=== PATIENT | male | born 1935 | race Caucasian/White ===

== ENCOUNTER 2021-01-24 22:01 | Emergency (ER) | payer MEDICARE ==
[~2021-01-24 22:01] MED LIST: COLACE100 MG PO
[2021-01-24] MEDS ORDERED: BACLOFEN 10MG T10 MG PO (23:15)
== END 2021-01-24 23:25 | disposition home or self-care (01) ==
LOC: FER 22:01
DX: M43.6 Torticollis (principal); I10 Essential (primary) hypertension; I48.91 Unspecified atrial fibrillation; Z86.73 Personal history of transient ischemic attack (TIA), and cerebral infarction without residual deficits; Z88.5 Allergy status to narcotic agent; Z79.01 Long term (current) use of anticoagulants
CPT/HCPCS: 99283

== ENCOUNTER 2021-08-11 08:06 | Emergency (ER) | payer MEDICARE ==
[~2021-08-11] VITALS: Ht 190.5 cm; Wt 79.4 kg
[~2021-08-11 08:06] MED LIST changes: +BACLOFEN 10MG T10 MG PO
[2021-08-11] MEDS ORDERED: ROBAXIN750 MG PO (10:49)
[2021-08-11] MEDS ORDERED: NORCO 5-325 TA1 EACH PO (10:49)
[2021-08-11] MEDS ORDERED: CEPHALEXIN250 M1 PO (10:52)
[2021-08-11 11:56] LABS: BASOPHIL 0.3 % (0-2); EOSINOPHIL 0.4 % (0-7); HCT 41.6 % (42.0-52.0); HGB 13.8 g/dl (13.2-18.0); LYMPHOCYTE 4.6 % (15-48); MCH 30.5 pg (25.0-31.0); MCHC 33.2 g/dL (32.0-36.0); MONOCYTE 13.4 % (0-12); MPV 9.3 fL (6.0-9.5); NEUTROPHIL 80.9 % (41-80); NRBC 0; PLT 170 K/uL (150-400); RBC 4.52 M/uL (4.70-6.00); RDW 13.5 % (11.5-14.0); WBC 7.5 K/uL (4.0-10.5)
[2021-08-11 12:08] LABS: ALBUMIN 3.6 g/dL (3.4-5.0); BILIRUBIN - TOTAL 0.6 mg/dL (0.2-1.0); BUN/CREAT RATIO (CALC) 15.7 RATIO; CREATININE 1.53 mg/dL (0.67-1.17); GLOBULIN (CALCULATION) 3.2 g/dL; POTASSIUM 4.1 mmol/L (3.5-5.1); TOTAL PROTEIN 6.8 g/dL (6.4-8.2)
[2021-08-11 12:24] LABS: BILIRUBIN NEGATIVE (NEGATIVE); BLOOD 3+ Ery/uL (NEGATIVE); CLARITY CLEAR (CLEAR); COLOR YELLOW (YELLOW); GLUCOSE (U) NORMAL (NORMAL); LEUKOCYTES TRACE Leu/uL (NEGATIVE); NITRITE NEGATIVE (NEGATIVE); PROTEIN TRACE (LOW) mg/dL (NEGATIVE); SPECIFIC GRAVITY 1.015 (1.001-1.030); UROBILINOGEN 0.2 mg/dL (0.2-1.0); pH 7.5 (5.0-9.0)
[2021-08-11 12:33] LABS: URINARY RBC TNTC
[2021-08-11] MEDS ORDERED: CEPHALEXIN250 MG PO (18:01)
[2021-08-11] MEDS ORDERED: KEFLEX250 MG PO (18:02)
== END 2021-08-11 19:00 | disposition home or self-care (01) ==
LOC: FER 08:06
PROVIDERS: Emergency Medicine
DX: N13.2 Hydronephrosis with renal and ureteral calculous obstruction (principal); K80.80 Other cholelithiasis without obstruction; I10 Essential (primary) hypertension
CPT/HCPCS: 36415; 80053; 81001; 83690; 85025; 96374; 96375; 96376; J1170; J2405

== ENCOUNTER 2021-12-07 16:14 | Emergency (ER) | payer MEDICARE ==
[~2021-12-07 16:14] MED LIST changes: +CEPHALEXIN250 M1 PO; +CEPHALEXIN250 MG PO; +KEFLEX250 MG PO; +NORCO 5-325 TA1 EACH PO; +ROBAXIN750 MG PO
[2021-12-07 17:31] LABS: BASOPHIL 0.3 % (0-2); EOSINOPHIL 0.1 % (0-7); HGB 14.9 g/dl (13.2-18.0); LYMPHOCYTE 3.7 % (15-48); MCH 30.8 pg (25.0-31.0); MCHC 33.1 g/dL (32.0-36.0); MPV 8.8 fL (6.0-9.5); NEUTROPHIL 83.4 % (41-80); NRBC 0; PLT 520 K/uL (150-400); RBC 4.84 M/uL (4.70-6.00); RDW 13.8 % (11.5-14.0); WBC 13.5 K/uL (4.0-10.5)
[2021-12-07 17:50] LABS: ALBUMIN 3.7 g/dL (3.4-5.0); BILIRUBIN - TOTAL 0.4 mg/dL (0.2-1.0); BUN/CREAT RATIO (CALC) 15.8 RATIO; CREATININE 1.33 mg/dL (0.67-1.17); GLOBULIN (CALCULATION) 4.2 g/dL; POTASSIUM 4.1 mmol/L (3.5-5.1); TOTAL PROTEIN 7.9 g/dL (6.4-8.2)
[2021-12-07 20:45] LABS: BILIRUBIN NEGATIVE (NEGATIVE); BLOOD 1+ Ery/uL (NEGATIVE); CLARITY CLEAR (CLEAR); COLOR YELLOW (YELLOW); GLUCOSE (U) NORMAL (NORMAL); LEUKOCYTES NEGATIVE Leu/uL (NEGATIVE); NITRITE NEGATIVE (NEGATIVE); PROTEIN 2+ mg/dL (NEGATIVE); SPECIFIC GRAVITY <=1.005 (1.001-1.030); UROBILINOGEN 0.2 mg/dL (0.2-1.0)
== END 2021-12-07 19:42 | disposition other institution (70) ==
LOC: FER 16:14
PROVIDERS: Emergency Medicine
DX: K56.609 Unspecified intestinal obstruction, unspecified as to partial versus complete obstruction (principal); N13.2 Hydronephrosis with renal and ureteral calculous obstruction
CPT/HCPCS: 36415; 74018; 80053; 81001; 83690; 84484; 85025; 93005; J2270; J2405; J2543; J7030